=== PATIENT | male | born 1950 | race Caucasian/White ===

== ENCOUNTER → 2017-09-26 | Outpatient (CLI) | payer MEDICARE, OTHER ==
[2017-09-26 21:45] LABS: C-REACTIVE PROTEIN XXX
[2017-09-27 23:07] LABS: ANA SCREEN with REFLEX Negative (Negative)
== END ==
LOC: LAB 09:21 → RAD 09:21
PROVIDERS: Orthopaedic Surgery Sports Medicine
DX: M77.32 Calcaneal spur, left foot (principal); M72.2 Plantar fascial fibromatosis

== ENCOUNTER → 2017-12-12 | Outpatient (CLI) | payer MEDICARE, OTHER | LOC: RAD 07:26 | DX: M19.072 Primary osteoarthritis, left ankle and foot (principal); M25.472 Effusion, left ankle ==

== ENCOUNTER → 2018-02-27 | Outpatient (CLI) | payer MEDICARE, OTHER ==
[2018-02-27 08:03] LABS: EOS # 0.2 (0.04-0.40); HEMATOCRIT 43.8 % (42.0-52.0); HEMOGLOBIN 14.8 g/dL (13.5-18.0); LYMPH# 1.4 (1.50-4.00); MEAN CELL VOLUME 87 fl (78-100); MEAN CORPUSCULAR HEMOGLOBIN 30 pg (27-31); MEAN CORPUSCULAR HGB CONC 34 g/dL (33-37); MEAN PLATELET VOLUME 9.8 fl (7.4-10.4); MONO # 0.6 (0.20-0.80); NEU # 2.3 (1.40-6.50); PLATELET COUNT 199 K/mm3 (130-400); RED BLOOD COUNT 5.02 M/mm3 (4.20-5.60); RED CELL DISTRIBUTION WIDTH 12.7 % (11.5-14.5); WHITE BLOOD COUNT 4.6 K/mm3 (4.8-10.8)
[2018-02-27 08:18] LABS: ALBUMIN 4.4 g/dL (3.5-5.0); BUN/CREATININE RATIO 24.2 (6.0-26.0); CALCIUM 9.2 mg/dL (8.4-10.2); POTASSIUM 4.2 mmol/L (3.6-5.0); TOTAL BILIRUBIN 0.9 mg/dL (0.2-1.3); TOTAL PROTEIN 7.9 g/dL (6.3-8.2)
== END ==
LOC: LAB 07:52
PROVIDERS: Nurse Practitioner Family
DX: Z00.00 Encounter for general adult medical examination without abnormal findings (principal); Z12.5 Encounter for screening for malignant neoplasm of prostate; R73.09 Other abnormal glucose; E78.5 Hyperlipidemia, unspecified; I50.42 Chronic combined systolic (congestive) and diastolic (congestive) heart failure

== ENCOUNTER → 2018-07-01 | Day surgery (SDC) | payer MEDICARE, OTHER | LOC: MSO 09:38 | DX: Z12.11 Encounter for screening for malignant neoplasm of colon (principal); Z86.010 Personal history of colon polyps; Z79.899 Other long term (current) drug therapy; I25.10 Atherosclerotic heart disease of native coronary artery without angina pectoris; I50.9 Heart failure, unspecified; G47.33 Obstructive sleep apnea (adult) (pediatric); K21.9 Gastro-esophageal reflux disease without esophagitis; Z79.82 Long term (current) use of aspirin | CPT/HCPCS: G0105; 00812; J2704; J7120 ==

== ENCOUNTER → 2018-09-11 | Outpatient (CLI) | payer MEDICARE, OTHER | LOC: RAD 10:47 | DX: M17.11 Unilateral primary osteoarthritis, right knee (principal) ==

== ENCOUNTER → 2019-02-10 | Outpatient (CLI) | payer MEDICARE, OTHER | LOC: RAD 14:06 | DX: S83.281A Other tear of lateral meniscus, current injury, right knee, initial encounter (principal); S83.241A Other tear of medial meniscus, current injury, right knee, initial encounter; M25.461 Effusion, right knee; M94.261 Chondromalacia, right knee; M71.21 Synovial cyst of popliteal space [Baker], right knee ==

== ENCOUNTER → 2019-02-11 | Outpatient (CLI) | payer MEDICARE, OTHER ==
[2019-02-11 09:13] LABS: ALBUMIN 4.4 g/dL (3.4-4.8); CALCIUM 9.8 mg/dL (8.8-10.0); TOTAL PROTEIN 7.3 g/dL (6.2-8.1)
[2019-02-11 09:33] LABS: EOS # 0.3 (0.04-0.40); HEMATOCRIT 44.3 % (42.0-52.0); HEMOGLOBIN 15.1 g/dL (13.5-18.0); LYMPH# 1.8 (1.50-4.00); MEAN CELL VOLUME 86 fl (78-100); MEAN CORPUSCULAR HEMOGLOBIN 29 pg (27-31); MEAN CORPUSCULAR HGB CONC 34 g/dL (33-37); MONO # 0.5 (0.20-0.80); NEU # 1.7 (1.40-6.50); PLATELET COUNT 225 K/mm3 (130-400); RED BLOOD COUNT 5.17 M/mm3 (4.20-5.60); RED CELL DISTRIBUTION WIDTH 12.6 % (11.5-14.5); WHITE BLOOD COUNT 4.3 K/mm3 (4.8-10.8)
[2019-02-11 10:12] LABS: EOS % 7.2 % (0.0-4.0)
== END ==
LOC: LAB 06:55
PROVIDERS: Physician Assistant
DX: Z00.00 Encounter for general adult medical examination without abnormal findings (principal); E78.2 Mixed hyperlipidemia; Z12.5 Encounter for screening for malignant neoplasm of prostate; D12.6 Benign neoplasm of colon, unspecified; I25.10 Atherosclerotic heart disease of native coronary artery without angina pectoris; J30.89 Other allergic rhinitis; K21.9 Gastro-esophageal reflux disease without esophagitis; E78.5 Hyperlipidemia, unspecified; R73.03 Prediabetes; I50.42 Chronic combined systolic (congestive) and diastolic (congestive) heart failure

== ENCOUNTER → 2019-03-04 | Outpatient (CLI) | payer MEDICARE, OTHER ==
[~2019-03-04] MED LIST: CHILDREN'S ASPI81 M1 PO; FLUTICASON0.05 MG/AC NS; ISOSORBIDE30 MG PO; LOPRESSOR 550 MG/TAB PO; NITROGLYCERIN0.4 M1 SL; OMEPRAZOLE D/R20 MG PO; PRAVACHOL80 MG PO; ZYRTEC ALLERGY10 MG PO
[2019-03-04 13:46] LABS: EOS # 0.2 (0.04-0.40); HEMOGLOBIN 14.1 g/dL (13.5-18.0); LYMPH# 1.8 (1.50-4.00); MEAN CELL VOLUME 87 fl (78-100); MEAN CORPUSCULAR HEMOGLOBIN 29 pg (27-31); MEAN CORPUSCULAR HGB CONC 34 g/dL (33-37); MEAN PLATELET VOLUME 9.6 fl (7.4-10.4); MONO # 0.5 (0.20-0.80); NEU # 2.2 (1.40-6.50); PLATELET COUNT 220 K/mm3 (130-400); RED BLOOD COUNT 4.84 M/mm3 (4.20-5.60); RED CELL DISTRIBUTION WIDTH 12.5 % (11.5-14.5); WHITE BLOOD COUNT 4.7 K/mm3 (4.8-10.8)
[2019-03-04 14:07] LABS: ALBUMIN 4.4 g/dL (3.4-4.8); CALCIUM 9.9 mg/dL (8.8-10.0); POTASSIUM 4.5 mmol/L (3.5-5.1); TOTAL PROTEIN 6.3 g/dL (6.2-8.1)
[2019-03-04 14:08] LABS: EOS % 5.1 % (0.0-4.0)
[2019-03-04 14:12] LABS: URINE APPEARANCE CLEAR; URINE BILIRUBIN NEGATIVE (NEGATIVE); URINE BLOOD NEGATIVE (NEGATIVE); URINE COLOR YELLOW; URINE GLUCOSE NEGATIVE (NEGATIVE); URINE KETONE NEGATIVE (NEGATIVE); URINE LEUKOCYTE ESTERASE NEGATIVE (NEGATIVE); URINE NITRATE NEGATIVE (NEGATIVE); URINE PROTEIN(semi-quant) NEGATIVE (NEGATIVE); URINE UROBILINOGEN NORMAL (NORMAL)
== END ==
LOC: LAB 13:25
PROVIDERS: Physician Assistant
DX: Z01.818 Encounter for other preprocedural examination (principal); I25.10 Atherosclerotic heart disease of native coronary artery without angina pectoris

== ENCOUNTER → 2019-03-05 | Outpatient (CLI) | payer MEDICARE, OTHER ==
[~2019-03-05] VITALS: Wt 84.1 kg
[2019-03-05 13:43] VITALS: BP 137/69
== END ==
LOC: RAD 13:18
DX: Z01.818 Encounter for other preprocedural examination (principal)

== ENCOUNTER → 2020-06-26 | Outpatient (CLI) | payer MEDICARE, OTHER ==
[2019-03-05 13:43] VITALS: BP 137/69
== END ==
LOC: LAB 07:26
DX: E78.2 Mixed hyperlipidemia (principal); I25.10 Atherosclerotic heart disease of native coronary artery without angina pectoris

== ENCOUNTER → 2021-02-23 | Outpatient (CLI) | payer MEDICARE, OTHER ==
[2019-03-05 13:43] VITALS: BP 137/69
== END ==
LOC: RAD 08:00
DX: M19.042 Primary osteoarthritis, left hand (principal)

== ENCOUNTER → 2021-09-27 | Outpatient (CLI) | payer MEDICARE, OTHER | LOC: RAD 15:12 | DX: M19.041 Primary osteoarthritis, right hand (principal) ==

== ENCOUNTER → 2021-09-28 | Outpatient (CLI) | payer MEDICARE, OTHER ==
[2021-09-28 07:32] LABS: BASO # 0.05 K/mm3 (0.02-0.10); EOS # 0.23 K/mm3 (0.04-0.40); EOS % 4.3 % (0.0-4.0); HEMATOCRIT 44.9 % (42.0-52.0); HEMOGLOBIN 14.7 g/dL (13.5-18.0); LYMPH# 1.31 K/mm3 (1.50-4.00); MEAN CELL VOLUME 89 fl (78-100); MEAN CORPUSCULAR HEMOGLOBIN 29 pg (27-31); MEAN CORPUSCULAR HGB CONC 33 g/dL (33-37); MEAN PLATELET VOLUME 9.4 fl (7.4-10.4); NEU # 3.17 K/mm3 (1.40-6.50); PLATELET COUNT 213 K/mm3 (130-400); RED BLOOD COUNT 5.04 M/mm3 (4.20-5.60); RED CELL DISTRIBUTION WIDTH 12.1 % (11.5-14.5); WHITE BLOOD COUNT 5.4 K/mm3 (4.8-10.8)
[2021-09-28 07:39] LABS: POTASSIUM 4.6 mmol/L (3.5-5.1)
[2021-09-28 07:40] LABS: ALBUMIN 4.4 g/dL (3.4-4.8)
[2021-09-28 07:41] LABS: CALCIUM 9.6 mg/dL (8.3-10.5)
[2021-09-28 07:42] LABS: TOTAL PROTEIN 7.3 g/dL (6.2-8.1)
[2021-09-28 07:44] LABS: TOTAL BILIRUBIN 0.6 mg/dL (0.2-1.2)
== END ==
LOC: LAB 07:19
PROVIDERS: Physician Assistant
DX: Z00.00 Encounter for general adult medical examination without abnormal findings (principal); Z12.5 Encounter for screening for malignant neoplasm of prostate; Z13.29 Encounter for screening for other suspected endocrine disorder; E78.2 Mixed hyperlipidemia; Z83.49 Family history of other endocrine, nutritional and metabolic diseases

== ENCOUNTER → 2022-05-17 | Outpatient (CLI) | payer MEDICARE, OTHER | LOC: RAD 08:16 | DX: M19.041 Primary osteoarthritis, right hand (principal) ==

== ENCOUNTER → 2023-01-03 | Outpatient (CLI) | payer MEDICARE, OTHER ==
[2023-01-03 07:35] LABS: BASO # 0.02 K/mm3 (0.02-0.10); EOS # 0.35 K/mm3 (0.04-0.40); EOS % 7.2 % (0.0-4.0); HEMATOCRIT 41.1 % (42.0-52.0); LYMPH# 1.48 K/mm3 (1.50-4.00); MEAN CELL VOLUME 87 fl (78-100); MEAN CORPUSCULAR HEMOGLOBIN 30 pg (27-31); MEAN CORPUSCULAR HGB CONC 34 g/dL (33-37); MEAN PLATELET VOLUME 9.8 fl (7.4-10.4); MONO # 0.46 K/mm3 (0.20-0.80); NEU # 2.53 K/mm3 (1.40-6.50); PLATELET COUNT 198 K/mm3 (130-400); RED BLOOD COUNT 4.73 M/mm3 (4.20-5.60); RED CELL DISTRIBUTION WIDTH 12.3 % (11.5-14.5); WHITE BLOOD COUNT 4.9 K/mm3 (4.8-10.8)
[2023-01-03 07:39] LABS: ALBUMIN 4.4 g/dL (3.4-4.8); POTASSIUM 4.2 mmol/L (3.5-5.1)
[2023-01-03 07:41] LABS: TOTAL PROTEIN 6.9 g/dL (6.2-8.1)
[2023-01-03 07:43] LABS: TOTAL BILIRUBIN 0.6 mg/dL (0.2-1.2)
== END ==
LOC: LAB 07:07
PROVIDERS: Physician Assistant
DX: Z00.00 Encounter for general adult medical examination without abnormal findings (principal); Z12.5 Encounter for screening for malignant neoplasm of prostate; E78.2 Mixed hyperlipidemia; K21.9 Gastro-esophageal reflux disease without esophagitis; I25.10 Atherosclerotic heart disease of native coronary artery without angina pectoris; R73.03 Prediabetes; R35.0 Frequency of micturition

== ENCOUNTER → 2024-02-06 | Outpatient (CLI) | payer MEDICARE, OTHER ==
[2024-02-06 11:40] LABS: ALBUMIN 4.5 g/dL (3.4-4.8)
[2024-02-06 11:41] LABS: CALCIUM 9.7 mg/dL (8.3-10.5)
[2024-02-06 11:43] LABS: TOTAL PROTEIN 7.2 g/dL (6.2-8.1)
[2024-02-06 11:45] LABS: TOTAL BILIRUBIN 0.8 mg/dL (0.2-1.2)
== END ==
LOC: LAB 11:23
PROVIDERS: Physician Assistant
DX: Z12.5 Encounter for screening for malignant neoplasm of prostate (principal); Z11.59 Encounter for screening for other viral diseases; Z13.29 Encounter for screening for other suspected endocrine disorder; E78.2 Mixed hyperlipidemia; M10.00 Idiopathic gout, unspecified site; R73.03 Prediabetes

== ENCOUNTER → 2024-03-05 | Outpatient (CLI) | payer MEDICARE, OTHER ==
[~2024-03-05] MED LIST changes: +ACETAMINOPHEN-H1 TA2 PO; +DOCUSATE SOD100 MG PO; +METOPROLOL SUCC25 M1 PO; +XARELTO2.5 MG PO
== END ==
LOC: RAD 09:25
DX: Z13.6 Encounter for screening for cardiovascular disorders (principal)

== ENCOUNTER 2024-03-26 16:54 | Emergency (ER) | payer MEDICARE, OTHER ==
[~2024-03-26] VITALS: Ht 177.8 cm; Wt 81.8 kg
[~2024-03-26 16:54] MED LIST changes: -ACETAMINOPHEN-H1 TA2 PO; -DOCUSATE SOD100 MG PO; -METOPROLOL SUCC25 M1 PO; -XARELTO2.5 MG PO
[2024-03-26] MEDS ORDERED: ACETAMINOPHEN-H1 TA2 PO (17:01)
[2024-03-26] MEDS ORDERED: DOCUSATE SOD100 MG PO (17:01)
[2024-03-26] MEDS ORDERED: METOPROLOL SUCC25 M1 PO (17:02)
[2024-03-26] MEDS ORDERED: XARELTO2.5 MG PO (17:02)
[2024-03-26] MEDS ORDERED: Sodium Phosphates Rectal Enema 133 ML BOTTLE RC ONE (17:15)
[2024-03-26] MEDS ORDERED: Polyethylene Glycol 3350 Powder 17 GM PACKET PO ONE (17:15)
[2024-03-26] MEDS ORDERED: Hydrocortisone 2.5% Cream 28.35 GM TUBE TOP ONE (19:00)
[2024-03-26] MEDS ORDERED: Hydrocortisone 1% Cream 30 GM TUBE TP ONE (19:00)
[2024-03-26 21:03] VITALS: BP 145/87
== END 2024-03-26 21:03 | disposition home or self-care (01) ==
LOC: ED 16:54
DX: K59.00 Constipation, unspecified (principal)

== ENCOUNTER 2024-08-01 14:31 | Emergency (ER) | payer MEDICARE, OTHER ==
[~2024-08-01] VITALS: Ht 175.3 cm; Wt 86.4 kg
[~2024-08-01 14:31] MED LIST changes: +ACETAMINOPHEN-H1 TA2 PO; +DOCUSATE SOD100 MG PO; +METOPROLOL SUCC25 M1 PO; +XARELTO2.5 MG PO
[2024-08-01 15:06] LABS: BASO # 0.01 K/mm3 (0.02-0.10); EOS # 0.24 K/mm3 (0.04-0.40); EOS % 5.4 % (0.0-4.0); HEMATOCRIT 42.1 % (42.0-52.0); HEMOGLOBIN 14.7 g/dL (13.5-18.0); LYMPH# 1.39 K/mm3 (1.50-4.00); MEAN CELL VOLUME 87 fl (78-100); MEAN CORPUSCULAR HEMOGLOBIN 30 pg (27-31); MEAN CORPUSCULAR HGB CONC 35 g/dL (33-37); MEAN PLATELET VOLUME 9.9 fl (7.4-10.4); MONO # 0.48 K/mm3 (0.20-0.80); NEU # 2.31 K/mm3 (1.40-6.50); PLATELET COUNT 204 K/mm3 (130-400); RED BLOOD COUNT 4.84 M/mm3 (4.20-5.60); RED CELL DISTRIBUTION WIDTH 12.4 % (11.5-14.5); WHITE BLOOD COUNT 4.4 K/mm3 (4.8-10.8)
[2024-08-01 15:11] LABS: ALBUMIN 4.5 g/dL (3.4-4.8); SODIUM 139 mmol/L (136-145)
[2024-08-01 15:12] LABS: CALCIUM 9.5 mg/dL (8.3-10.5)
[2024-08-01 15:13] LABS: GLUCOSE 103 mg/dL (75-110); TOTAL PROTEIN 7.2 g/dL (6.2-8.1)
[2024-08-01 15:14] LABS: CARBON DIOXIDE 20 mmol/L (23-31)
[2024-08-01 15:18] LABS: AST-SGOT 21 U/L (5-34)
[2024-08-01 15:20] LABS: ALT/SGPT 27 U/L (0-55); LIPASE 24 U/L (8-78)
[2024-08-01 15:26] LABS: TROPONIN-I < 0.030 ng/mL (0.00-0.033)
[2024-08-01 15:51] VITALS: BP 144/70
== END 2024-08-01 15:57 | disposition home or self-care (01) ==
LOC: ED 14:31
PROVIDERS: Family Medicine
DX: I44.0 Atrioventricular block, first degree (principal); I44.7 Left bundle-branch block, unspecified; Z95.1 Presence of aortocoronary bypass graft; Z79.82 Long term (current) use of aspirin